=== PATIENT | male | born 1940 | race Caucasian/White ===

== ENCOUNTER → 2019-01-26 | Outpatient (CLI) | payer MEDICARE, BC, SELFPAY ==
--- NOTE | 2019-01-29 08:48 | STRESSREP ---
Stress Test Report Date: 01/26/2019 Procedure: Pharmacologic stress nuclear imaging study Indications: Shortness of breath Consent: Per the patient Procedure: The patient underwent pharmacologic (Regadenoson) evaluation with a peak heart rate of 100 beats per minute (70 %predicted maximal heart rate) and a peak blood pressure of 130/80 mmHg. The baseline ECG demonstrated normal sinus rhythm. EKG during lexiscan infusion revealed no significant ischemic changes. EKG post infusion revealed no significant ischemic changes. [There were no cardiac dysrhythmias pretest, during pharmacologic infusion, or recovery]. [There was no complaint of chest discomfort during pharmacologic infusion or recovery]. The examination was discontinued secondary to completion of protocol. Impression: 1. Lexiscan stress test test is negative for Lexiscan infusion induced EKG changes of ischemia. 2. Lexiscan stress test test is negative for Lexiscan infusion induced chest pain. 3. Results of the nuclear portion of the test is as below Myocardial perfusion imaging study: Technique: The patient was injected with 11.5 millicuries of technetium 99m Cardiolite and subsequently rest SPECT Cardiolite nuclear imaging was obtained in the horizontal long, vertical long, and short axis views. The patient underwent pharmacologic (Regadenoson) evaluation. Please see above for details. The patient was injected with 34.1 millicuries of technetium 99m Cardiolite and subsequently stress SPECT Cardiolite nuclear imaging was obtained in the horizontal long, vertical long, and short axis views. A gated Cardiolite study at peak stress was obtained. Interpretation: Rest and stress SPECT Cardiolite nuclear imaging status post realignment, normalization, and attenuation correction demonstrate normal myocardial radioisotope uptake during stress and rest. Gated images reveal no significant regional wall motion abnormalities. The reported LVEF is 62%. TID is 1.13. Impression: 1. There is no evidence of significant ischemia or infarction. 2. Estimated ejection fraction is 62%. This note was generated with broadbandchoicesation software. It may contain incorrect words, spelling, and punctuation that were not noted in checking the note before signing.
== END | disposition home or self-care (01) ==
LOC: CVS 06:59
PROVIDERS: Family Provider Family Medicine; PCP Family Medicine; Referring Provider Family Medicine; Visit Provider Family Medicine
DX: R06.02 Shortness of breath (principal)
CPT/HCPCS: 78452; 93017; A9500; A4216; J2785

== ENCOUNTER 2020-10-06 12:34 | Outpatient (RCR) | payer MEDICARE, BC, SELFPAY | END 2020-10-06 23:59 | LOC: IMMUN 12:34 | PROVIDERS: PCP Family Medicine; Visit Provider Family Medicine | DX: Z23 Encounter for immunization (principal) | CPT/HCPCS: 0011A; 0012A ==

== ENCOUNTER 2021-04-11 23:40 | Emergency (ER) | payer MEDICARE, BC, SELFPAY ==
[2021-04-11 23:41] VITALS: BP 148/82; PULSE 95; RESP 16; TEMP 36.2; O2SAT 94; BMI 27.6
--- NOTE | 2021-04-11 23:49 | EDS_ITS ---
HPI History of Present Illness Chief Complaint: Complaint Informant: patient and spouse/S.O. Pain Onset: Today Narrative Narrative: Increasing your discomfort today at the start of urination and finishing of urination. No fevers or abdominal pain. No nausea or vomiting. Status post transurethral resection of bladder cancer day four at [facility]. He was empirically placed on Keflex for which he finishes antibiotics. He is on oxybutynin as needed along with Pyridium for which he took a dose today. Jason catheter was removed yesterday per spouse it was clear urine. Today initial dark urine then clears up. Diagnosis was a week ago of the bladder cancer. Denies back pain. Prior similar symptoms: No PFSH PFSH Medical History (Updated 04/12/21 @ 01:[address] Deandre Castillo DO) [place] Home Medications calcium carbonate-vitamin D2 1 cap PO DAILY 04/11/21 [History Last Taken Unknown] doxepin 100 mg PO QHS 04/11/21 [History Last Taken Unknown] multivitamin 1 tab PO DAILY 04/11/21 [History Last Taken Unknown] oxybutynin chloride 5 mg PO TID 04/11/21 [History Last Taken Unknown] phenazopyridine 200 mg PO TID PRN 04/11/21 [History Last Taken Unknown] ramipril 5 mg PO DAILY 04/11/21 [History Last Taken Unknown] ciprofloxacin HCl [Cipro] 500 mg PO Q12H #14 tab 04/12/21 [Rx Last Taken Unknown] Allergy/AdvReac Type Severity Reaction Status Date / Time No Known Allergies Allergy Verified 04/11/21 23:41 Surgical History History of hernia repair History of transurethral resection of prostate Previous back surgery Social History Smoking Status: Current every day smoker tobacco type: pipe ROS ROS ED Constitutional Constitutional ED: Denies chills, fever(s) or sweats Eyes Eyes: Denies change in vision ENT ENT ED: Denies dysphagia or sore throat Cardiovascular Cardiovascular: Denies chest pain, leg edema, palpitations or racing heartbeat Respiratory/Chest Respiratory/Chest: Denies cough, dyspnea or dyspnea on exertion Gastrointestinal Gastrointestinal: Denies abdominal pain, diarrhea, nausea or vomiting Genitourinary Genitourinary ED: Reports dysuria; Denies hematuria or urinary frequency Musculoskeletal Musculoskeletal: Denies back pain, extremity pain or neck pain Integumentary Denies rash or wounds Neurologic Neurologic: Denies headache(s), paresthesias or weakness EXAM Physical Exam Const Vital Signs: 04/11/21 23:41 Temperature 97.2 F L Temperature Source Temporal Pulse Rate 95 Respiratory Rate 16 Blood Pressure 148/82 H Blood Pressure Mean 104 Pulse Ox 94 Oxygen Delivery Method Room Air Positive well nourished and well developed General Appearance ED: well developed and NAD HEENT Reports moist mucous membranes normocephalic and atraumatic Eyes PERRL, EOMs intact bilaterally and conjunctivae normal General Eye ED: Yes normal appearance of both eyes Neck no lymphadenopathy and supple General: Negative for tenderness Chest Wall Chest: Negative for tenderness Resp normal respiratory effort and normal air movement Effort and Inspection: symmetric chest movement; Negative for respiratory distress Cardio regular rate, regular rhythm and no murmurs Peripheral Pulses: pulses 2+ throughout GI normal to inspection, nondistended, normoactive bowel sounds and non-tender Palpation: Negative for guarding or rebound tenderness present Negative for no CVA tenderness Back/Spine no CVA tenderness and no thoracic nor lumbar tenderness Extremity normal to inspection General Extremety ED: Negative for edema or tenderness General Extremity: Negative for edema Neuro oriented x3 and no sensory deficits noted Sensorium / Orientation: awake and alert Skin no rashes or lesions noted and no wounds MDM MDM MDM Narrative Medical decision making narrative: Patient nontoxic. Jason removal yesterday. Post void residual was 500 cc. Jason catheter placed. Urine noted leukocytes and hematuria. Urine culture sent. With patient having dysuria will place on antibiotics for 7-day course of Cipro. He will maintain the Jason catheter. Patient will call his urologist at [facility] main discussed Jason maintenance and follow-up for removal. All questions were answered. Lab Data Attestation: I reviewed the patient's lab results. Labs: Laboratory Results - last 24 hr 04/11/21 00:05 Urine Color Yellow Urine Clarity Clear Urine pH 7.0 Ur Specific [place] 1.005 Urine Protein 15 H Urine Glucose (UA) Normal Urine Ketones Negative Urine Occult Blood 250 H Urine Nitrite Negative Urine Bilirubin Negative Urine Urobilinogen Normal Ur Leukocyte Esterase 25 H Urine RBC 0-5 SEEN Urine WBC 0 SEEN Ur Squamous Epith Cells 0 SEEN Urine Bacteria 0 SEEN Urine Mucus 0 SEEN Discharge Plan Triage Chief Complaint: Complaint ED Provider: Deandre Castillo Dx/Rx/DC Orders Clinical Impression: Acute retention of urine, Acute UTI, Dysuria, Hx of bladder cancer Instructions: ED Jason Catheter, Care, ED Bladder Infection, Male (Adult) Prescriptions: New ciprofloxacin HCl [Cipro] 500 mg tablet 500 mg PO Q12H Qty: 14 RF: 0 No Action phenazopyridine 200 mg Tablet 200 mg PO TID PRN (Reason: Urinary Retention) RF: 0 oxybutynin chloride 5 mg Tablet 5 mg PO TID RF: 0 multivitamin Tablet 1 tab PO DAILY RF: 0 doxepin 100 mg Capsule 100 mg PO QHS RF: 0 ramipril 5 mg Capsule 5 mg PO DAILY RF: 0 calcium carbonate-vitamin D2 1,200-400 mg-unit Capsule 1 cap PO DAILY RF: 0 Primary Care Provider: Peña Torres Referrals: Peña Torres MD [Primary Care Provider] - Activity Restrictions/Additional Instructions: Call your urologist up at [facility] for follow-up and disc ussion. Take your antibiotic as prescribed. Urine culture is pending. Disposition Disposition: Home, Self Care
[2021-04-12 00:14] LABS: Bacteria 0 SEEN /hpf (None Seen); Mucous, Urine 0 SEEN /hpf (<or=2+); Squamous Epithelial Cells - UA 0 SEEN /hpf (0-5); White Blood Cells 0 SEEN /hpf (0-5)
[2021-04-12 00:15] LABS: Color, Urine Yellow (Yellow); Glucose, Dipstick Normal (Normal); Ketone-Dipstick Negative (Negative); Leukocyte Esterase-Dipstick 25 /ul (Negative); Nitrite-Dipstick Negative (Negative); Occult Blood-Urine 250 /ul (Negative); Protein-Dipstick 15 mg/dl (Negative); Specific Gravity, Urine 1.005 (1.002-1.030); Urine Bilirubin Dipstick Negative (Negative); Urine Clarity Clear (Clear); Urine Urobilinogen Normal (Normal)
[2021-04-12 00:35] LABS: Red Blood Cells-Urine 0-5 SEEN /hpf (0-5)
[2021-04-12 01:45] VITALS: RESP 16
== END 2021-04-12 01:54 | disposition home or self-care (01) ==
PROVIDERS: Emergency Provider Emergency Medicine; PCP Family Medicine
DX: N39.0 Urinary tract infection, site not specified (principal); Z85.51 Personal history of malignant neoplasm of bladder; Z79.899 Other long term (current) drug therapy; F17.290 Nicotine dependence, other tobacco product, uncomplicated
CPT/HCPCS: 81001; 87086; 99282

== ENCOUNTER 2023-03-20 13:48 | Emergency (ER) | payer MEDICARE, BC, SELFPAY ==
[2023-03-20 13:49] VITALS: BP 141/121; PULSE 116; RESP 18; TEMP 36.6; O2SAT 98; BMI 25.3
--- NOTE | 2023-03-20 14:23 | EDS_ITS ---
HPI <KATIUSKA Dodson - Last Filed: 03/20/23 15:22> History of Present Illness Chief Complaint: Back Narrative Narrative: Patient presenting today due to a pain to his right shoulder blade that he has had for the past 2 days. He reports that the pain began randomly 2 nights ago and he describes it as sharp and constant. It is worsened by movement of the right shoulder. He denies any injury, recent exercises/lifting. He reports concern for PE as he has had one in the past and currently has bladder cancer. He follows with a urologist with the [facility] as well as a urologist in [place] where he lives during part of the year. He reports receiving treatment with Gemzar and last received treatment 1 year ago. He is not on any blood thinners. He denies chest pain, shortness of breath, recent travel, surgery/procedures, recent immobilization. PFSH <KATIUSKA Dodson - Last Filed: 03/20/23 15:22> [facility] Medical History [place] Home Medications calcium carbonate-ergocalciferol (vit D2) 1,200 mg-400 unit capsule 1 cap PO DA LORRI 04/11/21 [History Last Taken Unknown] doxepin 100 mg capsule 100 mg PO QHS 04/11/21 [History Last Taken Unknown] multivitamin 1 tab PO DAILY 04/11/21 [History Last Taken Unknown] oxybutynin chloride 5 mg tablet 5 mg PO TID 04/11/21 [History Last Taken Unknown] phenazopyridine 200 mg tablet 200 mg PO TID PRN Urinary Retention 04/11/21 [History Last Taken Unknown] ramipril 5 mg capsule 5 mg PO DAILY 04/11/21 [History Last Taken Unknown] ciprofloxacin HCl 500 mg tablet (Cipro) 500 mg PO Q12H #14 tabs 04/12/21 [Rx Last Taken Unknown] Allergy/AdvReac Type Severity Reaction Status Date / Time No Known Allergies Allergy Verified 03/20/23 13:49 Surgical History History of hernia repair History of transurethral resection of prostate Previous back surgery Social History Smoking Status: Current every day smoker tobacco type: pipe ROS <KATIUSKA Dodson - Last Filed: 03/20/23 15:22> ROS ED Constitutional Constitutional ED: Denies chills or fever(s) Cardiovascular Cardiovascular: Denies chest pain or palpitations Respiratory/Chest Respiratory/Chest: Denies cough or dyspnea Gastrointestinal Gastrointestinal: Denies abdominal pain, nausea or vomiting Musculoskeletal Musculoskeletal: Reports back pain Integumentary Denies rash Neurologic Neurologic: Denies paresthesias or weakness EXAM <KATIUSKA Dodson - Last Filed: 03/20/23 15:22> Physical Exam Const Vital Signs: 03/20/23 13:49 03/20/23 15:08 03/20/23 15:08 Temperature 98 F Temperature Source Temporal Pulse Rate 116 H 89 Respiratory Rate 18 16 Blood Pressure 141/121 H 132/90 H 132/90 H Blood Pressure Mean 127 104 Pulse Ox 98 95 Oxygen Delivery Method Room Air Positive well nourished, well developed and no apparent distress General Appearance ED: well developed HEENT Reports normocephalic and head/scalp atraumatic Mouth ED: Yes moist mucous membranes normal Eyes PERRL and EOMs intact bilaterally Neck full ROM and supple Chest Wall inspection of chest normal Resp normal respiratory effort and clear to auscultation bilaterally Cardio regular rate and regular rhythm GI soft to palpation, non-tender, non-distended and no masses Back/Spine normal ROM and normal to inspection Extremity normal to inspection and full ROM Neuro oriented x3, CN's II-XII intact bilaterally, moves all extremities, no focal motor deficits and no sensory deficits noted Sensorium / Orientation: awake and alert Psych mental status grossly normal and thought process normal Skin no rashes or lesions noted and no wounds <Dr. Bear Villa MD - Last Filed: 03/20/23 14:49> Physical Exam Const Vital Signs: 03/20/23 13:49 03/20/23 15:08 03/20/23 15:08 Temperature 98 F Temperature Source Temporal Pulse Rate 116 H 89 Respiratory Rate 18 16 Blood Pressure 141/121 H 132/90 H 132/90 H Blood Pressure Mean 127 104 Pulse Ox 98 95 Oxygen Delivery Method Room Air MDM <KATIUSKA Dodson - Last Filed: 03/20/23 15:22> MDM MDM Narrative Medical decision making narrative: Patient presenting today due to pain to his mid right scapula that is reproduced with range of motion of his right shoulder. He did not injure the area. There is no ecchymosis or edema. Patient was concerned about this being a PE given his prior history of one. However, he does not feel short of breath, oxygen saturation is 98% on room air, he is not having any chest pain. Being that the pain is reproducible, I feel that this is musculoskeletal. [place] decision making was made and attending did offer to obtain further testing but they declined at this time. Repeat vitals obtained and patient's blood pressure and heart rate have improved. He will be discharged home in stable condition and is comfortable with plan. They have been given return instructions. They have been given RICE instructions. I have personally performed a face to face assessment of the patient and have reviewed the VANDANA Note. I performed a substantive portion of the visit including all aspects of the following. My burleson findings include: History is 83-year-old male right posterior scapular discomfort. Started on Tuesday night. No chest pain. No shortness of breath. 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 He is no longer on blood thinners. No hemoptysis. No leg pain or swelling. No recent travel. Exam is [well-appearing 83-year-old male. Vital signs stable initial blood pressure elevated at 141/121. That will be rechecked. Pulse ox 98% on room air no hypoxia. H EENT exam unremarkable. Neck nontender. Lungs clear equal symmetrical bilaterally. Heart regular rhythm rate about 100 no murmur. Chest wall nontender. His right scapula itself is nontender behind the scapula there is mild soft tissue tenderness and hurts with movement only. Is equal symmetrical radial pulses. Abdomen is soft and nontender. Moving all 4 extremities. Calves are nontender no edema. He is many many lipomas. Back exam unremarkable other than tenderness along his medial posterior scapula. No redness or warmth. No bruising.] Medical Decision Making [discussed with patient and his . Offered tests and/or an EKG or chest x-ray they deferred at this time and I agree I think this is musculoskeletal appears to be reproducible. Is not improving with ice, heat, Motrin and Tylenol he needs further evaluation.] Other additions or changes: [None] <Dr. Bear Villa MD - Last Filed: 03/20/23 14:49> [facility] MDM Narrative Medical decision making narrative: I have personally performed a face to face assessment of the patient and have reviewed the VANDANA Note. I performed a substantive portion of the visit including all aspects of the following. My burleson findings include: History is 83-year-old male right posterior scapular discomfort. Started on Tuesday night. No chest pain. No shortness of breath. 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 He is no longer on blood thinners. No hemoptysis. No leg pain or swelling. No recent travel. Exam is [well-appearing 83-year-old male. Vital signs stable initial blood pressure elevated at 141/121. That will be rechecked. Pulse ox 90% on room air no hypoxia. H EENT exam unremarkable. Neck nontender. Lungs clear equal symmetrical bilaterally. Heart regular rhythm rate about 100 no murmur. Chest wall nontender. His right scapula itself is nontender behind the scapula there is mild soft tissue tenderness and hurts with movement only. Is equal symm etrical radial pulses. Abdomen is soft and nontender. Moving all 4 extremities. Calves are nontender no edema. He is many many lipomas. Back exam unremarkable other than tenderness along his medial posterior scapula. No redness or warmth. No bruising.] Medical Decision Making [discussed with patient and his . Offered tests and/or an EKG or chest x-ray they deferred at this time and I agree I think this is musculoskeletal appears to be reproducible. Is not improving with ice, heat, Motrin and Tylenol he needs further evaluation.] Other additions or changes: [None] History & Record Review Discussion w/independent historian: Patient and Family Discharge Plan Triage Chief Complaint: Back ED Midlevel Provider: Patience Wild ED Provider: Bear Villa Dx/Rx/DC Orders Clinical Impression: Back pain Instructions: ED Back Pain (Acute or Chronic) Prescriptions: No Action phenazopyridine 200 mg Tablet 200 mg PO TID PRN (Reason: Urinary Retention) oxybutynin chloride 5 mg Tablet 5 mg PO TID multivitamin Tablet 1 tab PO DAILY doxepin 100 mg Capsule 100 mg PO QHS ramipril 5 mg Capsule 5 mg PO DAILY calcium carbonate-vitamin D2 1,200-400 mg-unit Capsule 1 cap PO DAILY ciprofloxacin HCl [Cipro] 500 mg tablet 500 mg PO Q12H Qty: 14 0RF Primary Care Provider: Peña Torres Referrals: Peña Torres MD [Primary Care Provider] - 5-7 Days Activity Restrictions/Additional Instructions: Alternate Tylenol and ibuprofen for your pain. Please follow-up with your PCP and return for any worsening of your symptoms. Disposition Disposition: Home, Self Care
[2023-03-20 15:08] VITALS: BP 132/90; PULSE 89; RESP 16; O2SAT 95
== END 2023-03-20 15:19 | disposition home or self-care (01) ==
LOC: ED 15:16
PROVIDERS: Emergency Provider Emergency Medicine; PCP Family Medicine; Visit Provider Emergency Medicine
DX: M54.9 Dorsalgia, unspecified (principal); Z85.51 Personal history of malignant neoplasm of bladder; F17.290 Nicotine dependence, other tobacco product, uncomplicated
CPT/HCPCS: 99282

== ENCOUNTER 2023-07-26 07:43 | Emergency (ER) | payer MEDICARE, BC, SELFPAY ==
[2023-07-26 07:43] VITALS: BP 120/93; PULSE 59; RESP 19; TEMP 35.8; O2SAT 92; BMI 26.6
--- NOTE | 2023-07-26 08:31 | CT_ITS ---
STUDY: CT ABDOMEN AND PELVIS WITHOUT CONTRAST REASON FOR EXAM: Male, 83 years old. Pain status post bladder resection. Urinary retention. RADIATION DOSAGE (If Supplied By Facility): CTDIvol = ( 7.87 ) mGy, DLP = ( 523.15 ) mGycm TECHNIQUE: Transaxial images were obtained from the dome of the diaphragm to the symphysis pubis without oral contrast, and without intravenous contrast. Sagittal and coronal images were reconstructed. Individualized dose optimization techniques were used for this CT. COMPARISON: None. FINDINGS: Mild degree of increased markings at the lung bases slightly worse on the left side suggestive of bibasilar atelectasis. Calcified pleural plaques along the posterior medial aspect of the right hemithorax. Coronary artery calcification. Scattered hypodense nodules in both lobes of the liver suggestive of cysts. Normal gallbladder and extrahepatic biliary system. There are multiple benign calcified granulomata of the spleen. Normal pancreas. Normal bilateral adrenal glands. Normal right kidney. Normal left kidney. Normal visualized stomach. Normal small intestine. There are multiple colonic diverticula consistent with diverticulosis. The appendix is visualized and appears normal. There is diffuse atherosclerotic calcification of the abdominal aorta with elongation and tortuosity, but without a demonstrated aneurysm. Normal inferior vena cava. Normal retroperitoneum. A Jason catheter is seen within an empty urinary bladder. Diffuse circumferential wall thickening of the bladder. There is evidence of increased markings in the fat in the left lateral conal fascia. There is evidence of fluid within the anterior aspect of the pelvis just anterior to the bladder as well as in the cul-de-sac. This may represent either small amount of postoperative hematoma or fluid. Thickening of the left rectus sheath on the left side suggestive of possible postoperative change. Small left inguinal hernia containing fat. There is evidence of prior vasectomy clips. There are diffuse degenerative changes of the visualized lumbar spine. Grade 1 anterior listhesis of L4 on L5. Findings suggestive of a hemangioma of the L3 vertebrae. CT/Abdomen/Pelvis without Cont IMPRESSION: Diffuse bladder wall thickening. Jason catheter is seen within the urinary bladder. Postoperative changes are seen in the pelvis as described suggestive of either fluid versus postoperative hematoma. Electronically Signed: Juan Quan MD at 9:11 EST ,
--- NOTE | 2023-07-26 08:32 | EX.ED.GUMALE ---
HPI History of Present Illness Chief Complaint: Complaint Narrative Narrative: 83-year-old male past medical history of bladder carcinoma, presents with his . He had a bladder resection for the third time for tumor in 2 areas yesterday at [facility]. His states that he usually goes into urinary retention after this. He was initially diagnosed in 2020, 2 years ago. They state that they got home from the hospital around 1030 yesterday evening. This morning at about 530, 3 hours ago, he could not urinate and started getting pressure in his bladder. He denies any fevers or chills, no hematuria. Reportedly, his straight cathed him at 545, but he was still starting to feel bladder pressure and pain. [facility] Medical History Bladder cancer Lipoma Home Medications calcium carbonate-ergocalciferol (vit D2) 1,200 mg-400 unit capsule 1 cap PO DAILY 04/11/21 [History Last Taken Unknown] doxepin 100 mg capsule 100 mg PO QHS 04/11/21 [History Last Taken Unknown] multivitamin 1 tab PO DAILY 04/11/21 [History Last Taken Unknown] oxybutynin chloride 5 mg tablet 5 mg PO TID 04/11/21 [History Last Taken Unknown] phenazopyridine 200 mg tablet 200 mg PO TID PRN Urinary Retention 04/11/21 [History Last Taken Unknown] ramipril 5 mg capsule 5 mg PO DAILY 04/11/21 [History Last Taken Unknown] ciprofloxacin HCl 500 mg tablet (Cipro) 500 mg PO Q12H #14 tabs 04/12/21 [Rx Last Taken Unknown] cephalexin 500 mg capsule 500 mg PO BID #10 caps 07/26/23 [Rx Last Taken Unknown] Allergy/AdvReac Type Severity Reaction Status Date / Time No Known Allergies Allergy Verified 03/20/23 13:49 Surgical History History of hernia repair History of transurethral resection of prostate Previous back surgery Social History Smoking Status: Current every day smoker tobacco type: pipe ROS ROS ED ROS Narrative Constitutional: No fever, no chills. HEENT: No sore throat. No neck pain. No loss of vision. No rhinorrhea. Cardiovascular: No chest pain. No palpitations. No pedal edema. Respiratory: No cough, no shortness of breath. Abdominal: Suprapubic soreness/abdominal pain. No nausea. No vomiting. Genitourinary: No dysuria. No hematuria. Positive urinary retention. Musculoskeletal: No myalgias. No arthralgias. Neurologic: No headaches. No dizziness. No lightheadedness. Skin: No rash. No change in color. Psychiatric: No depression. No anxiety. EXAM Physical Exam Narrative Exam Narrative: Afebrile. Vital signs noted. Nontoxic-appearing. HEENT: Normocephalic. Atraumatic. PERRL, EOMI. Neck soft and supple. No point tenderness or step off. Cardiovascular: Regular rate and rhythm. No murmurs, rubs, or gallops appreciated. Respiratory: No tachypnea. Lungs clear to auscultation bilaterally. Gastrointestinal: Abdomen soft, tenderness to palpation suprapubically, with normoactive bowel sounds. No rebound or guarding. Genitourinary: On visual inspection, Jason catheter in place draining clear to yellow urine. Neurological: Awake. Alert. Nonfocal, nonlateralizing. Skin: No rash. Normal color. No pallor. Musculoskeletal: No pedal edema. Full range of motion extremities. Const Vital Signs: 07/26/23 07:43 Temperature 96.5 F L Temperature Source Temporal Pulse Rate 59 L Respiratory Rate 19 H Blood Pressure 120/93 H Blood Pressure Mean 102 Pulse Ox 92 MDM MDM MDM Narrative Medical decision making narrative: Initially, concern was for urinary retention. They state that they have needed Jason catheter with leg bag in the past. Given his suprapubic soreness, he has been draining a large amount of urine currently, but once again, reportedly his straight cathed him this morning. No feel laboratory work is indicated but I will send a UA, and additionally I do feel that after cystoscopy and bladder tumor resection that CT of the abdomen pelvis should be obtained to ensure there is no evidence of bladder rupture. I reviewed his urinalysis and he has 25-50 RBCs with 10-25 WBCs per 0 bacteria. This will be sent for culture. I reviewed the radiology report. There is thickening of the bladder wall noted and the Jason catheter is in place with the bladder collapsed. There is a small amount of fluid versus hematoma in the anterior pelvis where the patient was sore. Upon repeat examination he states that his soreness has improved. I was able to discuss the patient with his urologist at the [facility] who states that this is normal postoperatively. He would like the patient placed on antibiotics for 5 days and leave the Jason catheter in place. Patient will be given a leg bag. He will follow-up with urology at [facility] for Jason catheter removal as well. I feel he be discharged safely home with follow-up. Return instructions to the emergency department were reviewed. Disposition is discharged home in stable condition. History & Record Review Discussion w/independent historian: Patient and Family () Additional record(s) reviewed:: Prior ED visit Lab Data Attestation: I reviewed the patient's lab results. Labs: Laboratory Results - last 24 hr 07/26/23 08:41 Urine Color Yellow Urine Clarity Sl. Cloudy Urine pH 5.0 Ur Specific Lyons 1.020 Urine Protein 100 H Urine Glucose (UA) Normal Urine Ketones Negative Urine Occult Blood 250 H Urine Nitrite Negative Urine Bilirubin Negative Urine Urobilinogen Normal Ur Leukocyte Esterase 100 H Urine RBC 25-50 SEEN Urine WBC 10-25 SEEN Ur Squamous Epith Cells 0 SEEN Urine Bacteria 0 SEEN Urine Mucus 0 SEEN Radiography Diagnostic Testing: Clinical Impression(s) from Imaging Studies Abdomen/Pelvis CT 07/26/23 08:31 IMPRESSION: Diffuse bladder wall thickening. Jason catheter is seen within the urinary bladder. Postoperative changes are seen in the pelvis as described suggestive of either fluid versus postoperative hematoma. Electronically Signed: Juan Quan MD at 9:11 EST , Discharge Plan Triage Chief Complaint: Complaint ED Provider: Anish Nina Dx/Rx/DC Orders Clinical Impression: Acute retention of urine, Acute UTI, Hx of bladder cancer, Postoperative abdominal pain Instructions: ED Jason Catheter, Care, ED Urinary Retention, Male, ED Urinary Tract Infections in Men Prescriptions: New cephalexin 500 mg capsule 500 mg PO BID Qty: 10 0RF No Action phenazopyridine 200 mg Tablet 200 mg PO TID PRN (Reason: Urinary Retention) oxybutynin chloride 5 mg Tablet 5 mg PO TID multivitamin Tablet 1 tab PO DAILY doxepin 100 mg Capsule 100 mg PO QHS ramipril 5 mg Capsule 5 mg PO DAILY calcium carbonate-vitamin D2 1,200-400 mg-unit Capsule 1 cap PO DAILY ciprofloxacin HCl [Cipro] 500 mg tablet 500 mg PO Q12H Qty: 14 0RF Primary Care Provider: Peña Torres Referrals: Peña Torres MD [Primary Care Provider] - Activity Restrictions/Additional Instructions: Leave Jason catheter in place. Follow-up with your urologist at [facility] in 5 to 7 days. Take antibiotics for 5 days. Return with fever, new or worsening symptoms. Disposition Disposition: Home, Self Care
[2023-07-26 08:48] LABS: Bacteria 0 SEEN /hpf (None Seen); Mucous, Urine 0 SEEN /hpf (<or=2+); Squamous Epithelial Cells - UA 0 SEEN /hpf (0-5)
[2023-07-26 08:53] LABS: Color, Urine Yellow (Yellow); Glucose, Dipstick Normal (Normal); Ketone-Dipstick Negative (Negative); Leukocyte Esterase-Dipstick 100 /ul (Negative); Nitrite-Dipstick Negative (Negative); Occult Blood-Urine 250 /ul (Negative); Protein-Dipstick 100 mg/dl (Negative); Urine Bilirubin Dipstick Negative (Negative); Urine Clarity Sl. Cloudy (Clear); Urine Urobilinogen Normal (Normal)
[2023-07-26 09:04] LABS: Red Blood Cells-Urine 25-50 SEEN /hpf (0-5); White Blood Cells 10-25 SEEN /hpf (0-5)
[2023-07-26] MEDS: Cephalexin 250 MG Capsule 500 MG PO (10:10)
== END 2023-07-26 10:18 | disposition home or self-care (01) ==
PROVIDERS: Emergency Provider Emergency Medicine; PCP Family Medicine; Visit Provider Emergency Medicine
DX: R33.9 Retention of urine, unspecified (principal); N39.0 Urinary tract infection, site not specified; F17.200 Nicotine dependence, unspecified, uncomplicated; Z85.51 Personal history of malignant neoplasm of bladder; Z98.890 Other specified postprocedural states
CPT/HCPCS: 74176; 81001; 87086; 99282